=== PATIENT | male | born 1925 | race Caucasian/White ===

== ENCOUNTER → 2017-01-20 | Outpatient (CLI) | payer MEDICARE ==
[~2017-01-20] MED LIST: ATORVASTATIN CA10 M1 PO; CARBAMAZEPINE100 MG PO; COUMADIN5 M1 PO; COUMADIN5 M2 PO; FUROSEMIDE20 M1 PO; GABAPENTIN TAB600 MG PO; HUMALOG100 U/ML SQ; LANTUS100 U/ML SC; LISINOPRIL40 MG PO; Lopressor25 MG PO; NEURONTIN300 MG PO; NOVOLOG MIX 70/33 ML; PLAVIX75 MG; POTASSIUM CHLO20 ME4 PO; WARFARIN SOD5 MG PO; WARFARIN2 MG PO
[2017-01-20 13:23] LABS: BASO % 0.6 % (0.0-1.0); EOS # 0.4 10*3/uL (0.0-0.4); EOS % 7.4 % (1.0-4.0); HEMATOCRIT 36.4 % (42.0-52.0); HEMOGLOBIN 11.8 g/dl (14.0-18.0); LYMPH # 0.5 10*3/uL (1.3-4.4); LYMPH % 10.6 % (27.0-41.0); MEAN CELL VOLUME 94.8 fl (80.0-94.0); MEAN CORPUSCULAR HGB 30.7 pg (27.0-31.0); MEAN CORPUSCULAR HGB CONC 32.4 g/dl (33.0-37.0); MEAN PLATELET VOLUME 10.6 fl (9.6-12.3); MONO # 0.6 10*3/uL (0.1-1.0); MONO % 11.4 % (3.0-9.0); NEUT # 3.5 10*3/uL (2.3-7.9); NEUT % 69.6 % (47.0-73.0); PLATELET COUNT AUTOMATED 119 10*3/uL (130-400); RED BLOOD COUNT 3.84 10*6/uL (4.50-5.90); RED CELL DISTRI WIDTH 13.9 % (0-14.5)
[2017-01-20 13:48] LABS: BUN 22 mg/dl (7-24); CARBON DIOXIDE 27 mmol/L (21-32); CHLORIDE 105 mmol/L (98-107); CHOLESTEROL 130 mg/dL (<200); EST GLOM FILT AFRICAN AMERICAN > 60 ml/min; GLUCOSE 298 mg/dL (65-99); HDL CHOLESTEROL 42 mg/dl (40-60); LDL CHOLESTEROL 70 mg/dL (9-159); POTASSIUM 5.1 mmol/L (3.5-5.1); SGPT/ALT 26 U/L (12-78); SODIUM 136 mmol/L (136-145); TRIGLYCERIDES 88 mg/dl (<150); VLDL CHOLESTEROL 18 mg/dL (6-40)
[2017-01-20 13:50] LABS: INTERNATIONAL NORM RATIO 1.3 (2.0-3.5); PROTHROMBIN TIME 14.1 SECONDS (9.0-12.4)
[2017-01-20 13:59] LABS: HEMOGLOBIN A1c 8.6 % (4.8-5.6)
== END | disposition home or self-care (01) ==
LOC: LAB 12:38
PROVIDERS: Internal Medicine Endocrinology, Diabetes & Metabolism
DX: E11.65 Type 2 diabetes mellitus with hyperglycemia (principal); I10 Essential (primary) hypertension; I48.91 Unspecified atrial fibrillation; E78.00 Pure hypercholesterolemia, unspecified; G60.3 Idiopathic progressive neuropathy; I89.0 Lymphedema, not elsewhere classified